=== PATIENT | male | born 1960 | race Caucasian/White ===

== ENCOUNTER 2017-04-29 10:52 | Emergency (ER) | payer OTHER ==
[~2017-04-29] VITALS: Ht 185.4 cm; Wt 80.3 kg
[~2017-04-29 10:52] MED LIST: CELEBREX 200 M200 M1 PO; CLARITIN10 MG PO; DOXYCYCLINE 10100 M1 PO; DULERA 100 MCG/13 GM; IBUPROFEN 600600 M1 PO; NORCO 5-325 TA1 EACH PO; OMEPRAZOLE 20 M20 MG PO; PREDNISONE 10 M10 MG PO; PROVENTIL HFA6.7 G1 INH; SPIRIVA INH; TYLENOL325 MG PO; VENTOLIN HFA 1818 GM; ZOLOFT 50 MG TA50 M1 PO; ZPAK PO
[2017-04-29] MEDS ORDERED: ADVAIR 250-501 EACH INH (11:04)
[2017-04-29] MEDS ORDERED: VALIUM5 MG PO (13:17)
[2017-04-29] MEDS ORDERED: NORCO 5-325 TA1 EACH PO (13:17)
== END 2017-04-29 16:15 | disposition home or self-care (01) ==
LOC: ER 10:52
DX: M54.5 Low back pain (principal); M19.90 Unspecified osteoarthritis, unspecified site; J44.9 Chronic obstructive pulmonary disease, unspecified; F17.210 Nicotine dependence, cigarettes, uncomplicated; Z98.890 Other specified postprocedural states

== ENCOUNTER 2019-08-16 09:41 | Emergency (ER) | payer OTHER ==
[~2019-08-16] VITALS: Ht 185.4 cm; Wt 81.7 kg
[~2019-08-16 09:41] MED LIST changes: +ADVAIR 250-501 EACH INH; +VALIUM5 MG PO
[2019-08-16 10:56] VITALS: BP 107/82
[2019-08-16] MEDS ORDERED: NORCO 5-325 TA1 EAC1 PO (10:59)
== END 2019-08-16 11:03 | disposition home or self-care (01) ==
LOC: ER 09:41
DX: M54.2 Cervicalgia (principal); M19.90 Unspecified osteoarthritis, unspecified site; J44.9 Chronic obstructive pulmonary disease, unspecified; F17.210 Nicotine dependence, cigarettes, uncomplicated

== ENCOUNTER 2019-09-29 11:37 | Inpatient (IN) | payer OTHER ==
[~2019-09-29] VITALS: Ht 185.4 cm; Wt 74.9 kg
[~2019-09-29 11:37] MED LIST changes: +NORCO 5-325 TA1 EAC1 PO
[2019-09-29 11:38] VITALS: BP 101/67
[2019-09-29 12:02] LABS: ABSOLUTE NEUTROPHILS 4.9 thou/uL (1.4-8.2); BASOPHILS 0.5 % (0.0-2.0); EOSINOPHILS 0.5 % (0.0-3.0); HEMATOCRIT 49.2 % (42.0-52.0); HEMOGLOBIN 16.3 gm/dL (14.0-18.0); LYMPHOCYTES 17.6 % (24.0-44.0); MCH 31.6 pg (26.0-34.0); MCHC 33.2 g/dL (28.0-37.0); MCV 95.3 fL (80.0-100.0); PLATELET COUNT 189 thou/uL (150-400); POLYS 70.4 % (36.0-66.0); RBC 5.16 mil/uL (4.50-6.00); RDW 13.7 % (10.5-14.5); WBC 6.9 thou/uL (4.0-11.0)
[2019-09-29] MEDS ORDERED: CHANTIX1 EACH PO (12:12)
[2019-09-29] MEDS ORDERED: AMBIEN 10 MG TA10 MG PO (12:12)
[2019-09-29] MEDS ORDERED: ADVAIR 250-501 EACH INH (12:13)
[2019-09-29 12:15] LABS: ANION GAP 10 mmol/L (7-16); BUN 19 mg/dL (7-18); CHLORIDE 101 mmol/L (98-107); CO2 24 mmol/L (21-32); CREATININE 0.9 mg/dL (0.7-1.3); GLUCOSE 144 mg/dL (74-106); POTASSIUM 4.1 mmol/L (3.5-5.1); SODIUM 135 mmol/L (136-145)
[2019-09-29 12:21] LABS: ALBUMIN 3.7 g/dL (3.4-5.0); SGOT 14 U/L (15-37); SGPT 17 U/L (30-65); TOTAL BILIRUBIN 0.5 mg/dL (<0.1-1.0); TOTAL PROTEIN 7.3 g/dL (6.4-8.2); TROPONIN-I <0.06 ng/mL (<0.06)
[2019-09-29 13:31] VITALS: BP 110/65
[2019-09-29 14:31] VITALS: BP 121/70
[2019-09-29 15:59] VITALS: BP 135/88
--- NOTE | 2019-09-29 17:21 | NUR ---
NEW ADMISSION FOR CHEST PAIN AND SOA, ALERT X4, PAIN RATES 2/10 ON ASSESMENT WITH PAIN INCREASE WHEN COUGHING. UP AB ILA IN ROOM. LAST BM 09/28/19, MEDICATIONS RECONCILED. 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 ADMISSION ASSESMENT AND HISTORY COMPLETED. ORDERS ACKNOWELDGED. CALL LIGHT IN REACH.
[2019-09-29 19:45] VITALS: BP 124/80
[2019-09-30 00:35] VITALS: BP 148/67
--- NOTE | 2019-09-30 03:59 | NUR ---
PT CARE ASSUMED AT 1900. PT ALERT AND ORIENTED. DENIES N/V/D. REPORTS CHEST SORENESS DUE TO PERSISTENT COUGHING. VITAL SIGNS STABLE. MINIMAL SOB REPORTED WITH EXCERTION AND GENERAL WEAKNESS. MED ADMINISTRATION AND ASSESSMENTS DOCUMENTED.PT CURRENTLY STABLE. NO OTHER CONCERNS REPORTED. WILL CONTINUE WITH CURRENT PLAN OF CARE.
[2019-09-30 04:45] VITALS: BP 121/85
[2019-09-30 05:42] LABS: ABSOLUTE NEUTROPHILS 4.7 thou/uL (1.4-8.2); BASOPHILS 0.2 % (0.0-2.0); HEMATOCRIT 49.3 % (42.0-52.0); HEMOGLOBIN 16.8 gm/dL (14.0-18.0); LYMPHOCYTES 9.4 % (24.0-44.0); MCH 32.6 pg (26.0-34.0); MCV 95.7 fL (80.0-100.0); MONOCYTES 2.5 % (1.0-8.0); PLATELET COUNT 185 thou/uL (150-400); POLYS 87.9 % (36.0-66.0); RBC 5.15 mil/uL (4.50-6.00); RDW 13.6 % (10.5-14.5); WBC 5.4 thou/uL (4.0-11.0)
[2019-09-30 05:58] LABS: ANION GAP 12 mmol/L (7-16); BUN 16 mg/dL (7-18); CALCIUM 8.9 mg/dL (8.5-10.1); CHLORIDE 101 mmol/L (98-107); CHOLESTEROL 149 mg/dL (<200); CO2 23 mmol/L (21-32); CREATININE 0.8 mg/dL (0.7-1.3); GLUCOSE 119 mg/dL (74-106); HDL CHOLESTEROL 47 mg/dL (>40); LDL CHOLESTEROL 93 mg/dL (<100); MAGNESIUM 1.5 mg/dL (1.8-2.4); PHOSPHORUS 2.5 mg/dL (2.5-4.9); POTASSIUM 4.5 mmol/L (3.5-5.1); SODIUM 136 mmol/L (136-145); TC:HDL 3.2 Ratio (Not establshd); TRIGLYCERIDE 48 mg/dL (<150); VLDL 10 mg/dL (<40)
[2019-09-30 05:59] LABS: SERUM ASSESSMENT Clear
[2019-09-30 07:30] VITALS: BP 112/68
[2019-09-30 11:24] VITALS: BP 130/87
[2019-09-30 15:37] VITALS: BP 105/64
--- NOTE | 2019-09-30 17:13 | NUR ---
PT CARE ASSUMED APPROX 0700. ASSESSMENTS CHARTED. DENIES PAIN AND SOA. VSS. UP WITH STEADY GAIT. PT TOLERATING POC. PT AND RECEIVED CLINICAL/POC UPDATES THIS SHIFT AND BOTH DENY QUESTIONS OR CONCERNS REGARDING POC. NO DISTRESS NOTED.
[2019-09-30 19:50] VITALS: BP 116/78
--- NOTE | 2019-10-01 04:15 | NUR ---
Assumed care 1900. pt alert in his chair at this time. persistent cough still noted. lozenges given. Pt also denies chest pain, but minimal soreness from coughing. No, SOA, or palpitation reported despite the fact of pt having a 5 beat run of VTACH(strip printed in pt chart). Pt scheduled to have an echo this morning. no further c/o. pt currently stable.
[2019-10-01 04:24] VITALS: BP 117/78
[2019-10-01 08:00] VITALS: BP 119/87
[2019-10-01 12:17] VITALS: BP 114/68
--- NOTE | 2019-10-01 13:59 | NUR ---
Nutrition: pt admitted with CP, SOA. Assessed due to high risk screen for poor intake, weight loss (2-13#) per nsg admission assessment. Current weight of 165#, BMI WNL. [facility] Noted Troponin/EKG normal. Plan EKG today. Attempted to visit pt x 2 however noted family visibly upset and speaking with nsg senior portfolio manager, then pt leaving for test. Recent hx of Chantix use x 10 days in attempts for smoking cessation. PO intake documented as 50-100% of meals so far. Will follow for further hx 10/02 if pt remains admitted.
--- NOTE | 2019-10-01 15:48 | 2DMMODE ---
[facility] [address] [place] [address] 2 D/M-MODE ECHOCARDIOGRAM Name: CHRISTIE BISWAS Room #: 205-P [facility] IN ..#: [id number] Admission: 09/29/19 Attend Phys: Kala Chanel, Discharge: Date of : 56 Report #: [id number] THIS REPORT FOR: //name// APPROVED REPORT Study performed: 10/01/2019 13:44:48 EXAM: Comprehensive 2D, Doppler, and color-flow Echocardiogram Patient Location: Bedside Room #: 205 Status: routine BSA: 1.96 HR: 86 bpm BP: 119/87 mmHg Rhythm: Arrythmia Other Information Study Quality: Good Indications COPD Dyspnea Chest Pain 2D Dimensions RVDd: 33.17 mm IVSd: 7.68 (7-11mm) LVOT Diam: 24.36 (18-24mm) LVDd: 66.08 mm PWd: 7.47 (7-11mm) LVDs: 54.90 (25-40mm) Aortic Root: 31.89 mm IVC: 25.00 mm Volumes Left Atrial Volume (Systole) Single Plane 4CH: 62.75 mL Single Plane 2CH: 60.48 mL LA ESV Index: 34.00 mL/m2 Aortic Valve AoV Peak Blanco.: 1.22 m/s AO Peak Gr.: 5.96 mmHg LVOT Max P.37 mmHg LVOT Max V: 1.05 m/s FABIOLA Vmax: 3.99 cm2 Mitral Valve E/A Ratio: 0.7 [facility] [address] [place] [address] 2 D/M-MODE ECHOCARDIOGRAM Name: CHRISTIE BISWAS Room #: 205-P [facility] IN .R.#: [id number] Admission: 09/29/19 Attend Phys: Kala Chanel, Discharge: Date of : 56 Report #: [id number] MV Decel. Time: 251.99 ms MV E Max Blanco.: 0.63 m/s MV A Blanco.: 0.92 m/s MV PHT: 73.08 ms IVRT: 124.57 ms Pulmonary Valve PV Peak Blanco.: 0.86 m/s PV Peak Gr.: 2.99 mmHg Pulmonary Vein P Vein S: 0.51 m/s P Vein A: 0.27 m/s P Vein D: 0.46 m/s P Vein A Dur.: 87.7 msec P Vein S/D Ratio: 1.11 Left Ventricle Left ventricle is dilated. There is hypokinesis in the inferior wall. There is normal left ventricular wall thickness. Left ventricular systolic function is mild to moderately decreased. LVEF is 40-45%. Grade I - abnormal relaxation pattern. Right Ventricle The right ventricle is normal size. The right ventricular systolic function is normal. Atria Left atrium is at the upper limits of normal. Right atrium is at the upper limits of normal. Aortic Valve The aortic valve is normal in structure. No aortic regurgitation is present. There is no aortic valvular stenosis. Mitral Valve The mitral valve is normal in structure. Mild mitral regurgitation. No evidence of mitral valve stenosis. Tricuspid Valve The tricuspid valve is normal in structure. There is no tricuspid valve regurgitation noted. Pulmonic Valve The pulmonary valve is normal in structure. There is no pulmonic valvular regurgitation. Great Vessels The aortic root is normal in size. IVC is dilated and collapses [facility] [address] [place] [address] 2 D/M-MODE ECHOCARDIOGRAM Name: CHRISTIE BISWAS Room #: 205-P ADM IN M.R.#: [id number] Admission: 09/29/19 Attend Phys: Kala Chanel, Discharge: Date of : 56 Report #: [id number] <50% with inspiration. Pericardium There is no pericardial effusion. <Conclusion> Left ventricle is dilated. LVEF is 40-45%. There is hypokinesis in the inferior wall. The aortic valve is normal in structure. The mitral valve is normal in structure. Mild mitral regurgitation. The tricuspid valve is normal in structure. The pulmonary valve is normal in structure. There is no pericardial effusion. <ELECTRONICALLY SIGNED> By: Zeke Burt MD 10/01/19 1547 1547 1547 Zeke Burt MD /INF
--- NOTE | 2019-10-01 16:10 | EKG ---
[address] [address] ELECTROCARDIOGRAM REPORT Name: CHRISTIE BISWAS Room #: 205-P ADM IN M.R.#: [id number] Admission: 09/29/19 Attend Phys: aKla Chanel MD Discharge: Date of : 56 Report #: [id number] THIS REPORT FOR: //name// [facility] Test Date: 2019-10-01 Test Time: 08:41:00 Pat Name: CHRISTIE BISWAS Department: Room: 205 P Gender: M Ribbon Inker: Tatum GARCIA : 1960 Requested By: Ronnie Gray Order Number: [id number] MD: Richard Escalante Measurements Intervals [place] Rate: 79 P: 80 AL: 139 QRS: 98 QRSD: 118 T: 14 QT: 398 QTc: 457 Interpretive Statements Sinus arrhythmia Multiple ventricular premature complexes Right atrial enlargement Nonspecific intraventricular conduction delay Compared to ECG 06/28/2015 08:17:24 Electronically Signed On 10-01-2019 16:09:48 EDUCATIONAL RESOURCE COORDINATOR by Richard Escalante [email or web address] <ELECTRONICALLY SIGNED> By: Richard Escalante MD 10/01/19 1609 0 0 Richard Escalante MD /SHEILA
[2019-10-01 16:40] VITALS: BP 104/60
[2019-10-01 17:23] LABS: CALCIUM 9.1 mg/dL (8.5-10.1); CREATININE 0.9 mg/dL (0.7-1.3); POTASSIUM 4.4 mmol/L (3.5-5.1)
--- NOTE | 2019-10-01 18:26 | NUR ---
ASSUMED CARE AT SHIFT CHANGE, ALERT AND ORIENTED X4. VSS, C/O PAIN / AND PATIENT DENEIS ANY SOB. NPO MN FOR HEART CATH IN THE AM. WILL CONTINUE WITH POC.
[2019-10-01 21:01] VITALS: BP 101/65
[2019-10-02] VITALS (11 sets, daily range): BP systolic 113–150; BP diastolic 59–86
[2019-10-02 03:32] LABS: PROTIME 9.9 Seconds (9.3-11.4)
[2019-10-02 03:39] LABS: CALCIUM 9.5 mg/dL (8.5-10.1); CREATININE 0.8 mg/dL (0.7-1.3); MAGNESIUM 1.7 mg/dL (1.8-2.4); PHOSPHORUS 3.6 mg/dL (2.5-4.9); POTASSIUM 4.7 mmol/L (3.5-5.1)
--- NOTE | 2019-10-02 04:39 | NUR ---
PT RESTING QUIETLY IN ROOM , NO C/O PAIN, NPO SINCE MNOC FOR C. CATH IN AM, VSS, WILL CON'T TO MONITOR PER PPOC.
--- NOTE | 2019-10-02 14:53 | EKG ---
[place] [address] [facility] [facility] [place] [address] ELECTROCARDIOGRAM REPORT Name: CHRISTIE BISWAS Room #: 205-P ADM IN M.R.#: [id number] Admission: 09/29/19 Attend Phys: Kala Chanel MD Discharge: Date of : 56 Report #: [id number] THIS REPORT FOR: //name// [facility] ED Test Date: 2019-09-29 Test Time: 11:39:56 Pat Name: CHRISTIE BISWAS Department: Room: 205 Gender: M Residential Installer: RADHA : 1960 Requested By: Grazyna Hurst Order Number: [id number] MD: Richard Escalante Measurements Intervals [place] Rate: 83 P: 86 [place]: 131 QRS: 101 QRSD: 111 T: -18 QT: 347 QTc: 408 Interpretive Statements Sinus rhythm Multiform ventricular premature complexes Biatrial enlargement Right axis deviation Compared to ECG 06/28/2015 08:17:24 Electronically Signed On 10-02-2019 14:53:21 SPOOLER OPERATOR AUTOMATIC by Richard Escalante [email or web address] <ELECTRONICALLY SIGNED> By: Richard Escalante MD 10/02/19 1453 1139 1139 Richard Escalante MD /SHEILA
--- NOTE | 2019-10-02 15:05 | EKG ---
[address] [address] ELECTROCARDIOGRAM REPORT Name: CHRISTIE BISWAS Room #: 205-P ADM IN M.R.#: [id number] Admission: 09/29/19 Attend Phys: Kala Chanel MD Discharge: Date of : 56 Report #: [id number] THIS REPORT FOR: //name// [facility] Test Date: 2019-10-02 Test Time: 10:32:01 Pat Name: CHRISTIE BISWAS Department: Room: 205 P Gender: M Professor Of Poultry Science: SHANNA : 1960 Requested By: Ronnie Gray Order Number: [id number] MD: Richard Escalante Measurements Intervals [place] Rate: 77 P: 67 [place]: 135 QRS: 95 QRSD: 115 T: 55 QT: 420 QTc: 476 Interpretive Statements Sinus rhythm Paired ventricular premature complexes Nonspecific intraventricular conduction delay Compared to ECG 10/01/2019 08:41:00 Sinus arrhythmia no longer present Atrial abnormality no longer present Electronically Signed On 10-02-2019 15:05:21 LINOTYPER by Richard Escalante [email or web address] <ELECTRONICALLY SIGNED> By: Richard Escalante MD 10/02/19 1505 103 103 Richard Escalante MD /EPI
--- NOTE | 2019-10-02 16:52 | NUR ---
PT CARE ASSUMED APPROX 0700. ASSESSMENTS CHARTED. PT DENIES PAIN AND SOA. VSS. COMPLETED CARDIAC CATH WITHOUT ISSUES THIS SHIFT. RIGHT GROIN POST CATH SITE C/D/I. ALL POST CATH VSS. AT BEDSIDE SINCE THIS AM AND RECEIVED PROCEDURAL UPDATE FROM DR HEAD POST CATH. PT AND BOTH DENY QUESTIONS OR CONCERNS REGARDING POC. PT TOLERATING POC. NO DISTRESS NOTED.
--- NOTE | 2019-10-02 20:10 | CATHLAB ---
[facility] [address] [place] [address] INVASIVE PROCEDURE REPORT Name: CHRISTIE BISWAS Room #: 205-P [facility] IN ..#: [id number] Admission: 09/29/19 Attend Phys: Kala Chanel, Discharge: Date of : 56 Report #: [id number] THIS REPORT FOR: //name// APPROVED REPORT Study performed: 10/02/2019 07:26:21 Patient Details Patient Status: Out-Patient Room #: The patient is a 59 year-old male Event Personnel Ronnie Gray Arts Administrator Or Manager, Cindi Hays RN RN, Donya Busch RTR Brenda Martinez David Monitor Procedures Performed Left Heart Cath w/or w/o Coronaries 9841956 [facility] Aortogram Abdominal Peripheral Angio [address] w/wo Plasty Single RCA 864335 Indication Chest pain Procedure Narrative The Right Groin^ was infiltrated with 1% Lidocaine subcutaneous anesthesia. A PINNACLE 6FR Sheath #[id number] sheath was inserted into the RFA^. Coronary angiography was performed using coronary diagnostic catheters. The right coronary system was accessed and visualized with a JR4 catheter. The left coronary system was accessed and visualized with a JL4 catheter. The left ventricle was accessed and visualized with a PIGTAIL catheter. Left ventriculogram was performed in 30 degree projection. An aortogram of the ascending aortaabdominal aorta was performed. Closure device was deployed with a 6 Fr ACT #[id number] 6/7F #[id number]. The patient tolerated the procedure well and there were no complications associated with the procedure. There was no hematoma. Intraoperative Conscious Sedation Sedation start time: 8.07 Case end Time: 8.57 Fentanyl 50 mcg Versed 1 mg Fluoro Time: 8.13 minutes Dose: DAP 8907.00 cGycm2 1116 mGy Contrast Type and Amount: Omnipaque 210 ml [facility] [place] [address] INVASIVE PROCEDURE REPORT Name: CHRISTIE BISWAS Room #: 205-P [facility] IN ..#: [id number] Admission: 09/29/19 Attend Phys: Kala Chanel, Discharge: Date of : 56 Report #: [id number] Hemodynamics The aortic pressure is 116/38 mmHg with a mean of 66 mmHg. The left ventricular pressure is 110/11 mmHg with a mean of mmHg. The left ventricular end diastolic pressure is 21 mmHg. PCI Technique Lesion Percutaneous coronary intervention was performed on the mid right coronary artery. A VISTA 6FR JR 4 #[id number] Guide Catheter was used to engage the ostium. A Luge Wire .014 x 182CM #[id number] Interventional Guidewire was used to cross the lesion. BALLOON DILATION A Balloon catheter Sprinter OTW 2.25 x 12 #[id number] was inserted and inflated up to 8.00atm for 17seconds. Additional Inflation: 10.00atm for 11seconds. Additional Inflation: 10.00atm for 14seconds. 09/24-09/17- STENT DEPLOYMENT A drug-eluting stent RESOLUTE HERO OTW 2.5 X 18 #[id number] was inserted and inflated up to 18.00atm for 36seconds. Conclusion #1 successful PTCA stent of a chronically totally occluded dominant RCA placement of a 2.75 x 18 resolute drug-eluting stent postdilated 2.9 mm GERMÁN grade 3 flow GERMÁN grade 3 inferior wall blush #2 left main mildly disease giving rise to LAD and circumflex #3 LAD extends around the apex mild diffuse distal disease there is dpin-tw-aubuq collateral filling of an occluded PDA prior to coronary intervention #4 circumflex OM nondominant moderate size 3040% proximal disease otherwise widely patent marginal system #5 normal left ventricular size with inferior basilar hypokinesis EF 50-55% #6 abdominal aortogram revealing mild distal aortic ectasia no aneurysm or significant stenosis. Bilateral renal arteries appear widely patent. Recognitions and plan: Continue aggressive risk factor modification. Dual antiplatelet therapy at least one year duration. Successful caodaism of normal flow through the dominant right coronary artery appeared to be more of a chronic total occlusion. Vessel was well collateralized a limited inferior wall damage. [facility] [address] [place] [address] INVASIVE PROCEDURE REPORT Name: CHRISTIE BISWAS Room #: 205-P [facility] IN M.R.#: [id number] Admission: 09/29/19 Attend Phys: Kala Chanel, Discharge: Date of : 56 Report #: [id number] Ejection fraction near normal. Transfer to [facility] in stable condition continue stent protocol. <ELECTRONICALLY SIGNED> By: Ronnie Gray MD, FACC 10/02/192009 09 09 Ronnie Gray MD, FACC /INF
[2019-10-02 23:10] LABS: GLYCOHEMOGLOBIN (HGB A1C) 5.6 % (4.8-5.6)
[2019-10-03 00:39] VITALS: BP 116/79
[2019-10-03 03:34] VITALS: BP 116/71
--- NOTE | 2019-10-03 03:38 | NUR ---
pt resting quietly in room, right groin remains cdi, no c/o pain, vss, pt hopes to be dc'd soon, will cont to monitor per ppoc.
[2019-10-03 04:34] LABS: HEMATOCRIT 46.4 % (42.0-52.0); HEMOGLOBIN 15.2 gm/dL (14.0-18.0); MCH 31.6 pg (26.0-34.0); MCHC 32.8 g/dL (28.0-37.0); MCV 96.3 fL (80.0-100.0); RBC 4.82 mil/uL (4.50-6.00); RDW 13.9 % (10.5-14.5); WBC 10.5 thou/uL (4.0-11.0)
[2019-10-03 05:11] VITALS: BP 111/63
[2019-10-03 05:18] LABS: ALBUMIN 3.4 g/dL (3.4-5.0); ANION GAP 9 mmol/L (7-16); BUN 29 mg/dL (7-18); CALCIUM 8.5 mg/dL (8.5-10.1); CHLORIDE 104 mmol/L (98-107); CO2 25 mmol/L (21-32); CREATININE 0.8 mg/dL (0.7-1.3); GLUCOSE 79 mg/dL (74-106); POTASSIUM 4.1 mmol/L (3.5-5.1); SGOT 28 U/L (15-37); SGPT 27 U/L (30-65); SODIUM 138 mmol/L (136-145); TOTAL BILIRUBIN 0.3 mg/dL (<0.1-1.0); TOTAL PROTEIN 6.8 g/dL (6.4-8.2); TROPONIN-I <0.06 ng/mL (<0.06)
[2019-10-03 07:20] VITALS: BP 111/63
[2019-10-03 11:48] VITALS: BP 131/72
[2019-10-03] MEDS ORDERED: SPIRIVA INH (13:27)
[2019-10-03] MEDS ORDERED: EFFIENT10 MG PO (13:28)
[2019-10-03] MEDS ORDERED: LIPITOR40 MG PO (13:29)
[2019-10-03] MEDS ORDERED: ASPIRIN325 PO (13:29)
[2019-10-03] MEDS ORDERED: PREDNISONE 10 M10 MG PO (13:33)
[2019-10-03] MEDS ORDERED: MUCINEX1200 MG PO (13:35)
--- NOTE | 2019-10-03 14:01 | NUR ---
ASSUMED CARE 0700. ORIENTED X4, DENIES PAIN, RIGHT GROIN SITE C/D/I. OKAY TO DC PER CARDIALOGY. SINUS ARYTHMIA ON TELE. REVIEWED POST CATH EDUCATIONS AND NEW PERSCRIPTIONS. IV REMOVED AND TELE. DC WITH SELF CARE.
[2019-10-03 14:05] VITALS: BP 131/72
== END 2019-10-03 14:30 | disposition home or self-care (01) | DRG 246 ==
LOC: ER 11:37 → EROBS 13:23 → 2N 13:23
PROVIDERS: Internal Medicine Cardiovascular Disease; Nurse Practitioner Adult Health; Physician Assistant; ADMIT Internal Medicine
PROC: B4101ZZ Fluoroscopy of Abdominal Aorta using Low Osmolar Contrast (ICD-10-PCS; principal; 2019-10-02)
PROC: 4A023N7 Measurement of Cardiac Sampling and Pressure, Left Heart, Percutaneous Approach (ICD-10-PCS; principal; 2019-10-02)
PROC: 027034Z Dilation of Coronary Artery, One Artery with Drug-eluting Intraluminal Device, Percutaneous Approach (ICD-10-PCS; principal; 2019-10-02)
PROC: B2151ZZ Fluoroscopy of Left Heart using Low Osmolar Contrast (ICD-10-PCS; principal; 2019-10-02)
PROC: B2111ZZ Fluoroscopy of Multiple Coronary Arteries using Low Osmolar Contrast (ICD-10-PCS; principal; 2019-10-02)
DX: I25.10 Atherosclerotic heart disease of native coronary artery without angina pectoris (principal); I50.21 Acute systolic (congestive) heart failure; J40 Bronchitis, not specified as acute or chronic; M19.90 Unspecified osteoarthritis, unspecified site; J44.9 Chronic obstructive pulmonary disease, unspecified; F32.9 Major depressive disorder, single episode, unspecified; F41.9 Anxiety disorder, unspecified; Z82.49 Family history of ischemic heart disease and other diseases of the circulatory system; Z80.3 Family history of malignant neoplasm of breast; F17.210 Nicotine dependence, cigarettes, uncomplicated; K21.9 Gastro-esophageal reflux disease without esophagitis; Z79.82 Long term (current) use of aspirin; Z79.899 Other long term (current) drug therapy; Z71.6 Tobacco abuse counseling; Z72.89 Other problems related to lifestyle
CPT/HCPCS: 10081

== ENCOUNTER 2019-10-08 07:24 | Emergency (ER) | payer OTHER ==
[~2019-10-08] VITALS: Ht 185.4 cm; Wt 78.9 kg
[~2019-10-08 07:24] MED LIST changes: +AMBIEN 10 MG TA10 MG PO; +ASPIRIN325 PO; +CHANTIX1 EACH PO; +EFFIENT10 MG PO; +LIPITOR40 MG PO; +MUCINEX1200 MG PO
[2019-10-08 07:48] LABS: ABSOLUTE NEUTROPHILS 12.7 thou/uL (1.4-8.2); BASOPHILS 0.4 % (0.0-2.0); EOSINOPHILS 0.3 % (0.0-3.0); HEMOGLOBIN 15.3 gm/dL (14.0-18.0); LYMPHOCYTES 11.3 % (24.0-44.0); MCH 31.5 pg (26.0-34.0); MCHC 33.1 g/dL (28.0-37.0); MCV 95.1 fL (80.0-100.0); MONOCYTES 9.1 % (1.0-8.0); PLATELET COUNT 273 thou/uL (150-400); POLYS 78.9 % (36.0-66.0); RBC 4.84 mil/uL (4.50-6.00); RDW 13.5 % (10.5-14.5); WBC 16.1 thou/uL (4.0-11.0)
[2019-10-08] MEDS ORDERED: MAGNESIUM250 M1 PO ×2 (07:50)
[2019-10-08 08:00] LABS: PROTIME 9.4 Seconds (9.3-11.4)
[2019-10-08 08:04] LABS: ANION GAP 9 mmol/L (7-16); BUN 27 mg/dL (7-18); CALCIUM 9.9 mg/dL (8.5-10.1); CHLORIDE 102 mmol/L (98-107); CO2 27 mmol/L (21-32); CREATININE 0.8 mg/dL (0.7-1.3); GLUCOSE 84 mg/dL (74-106); POTASSIUM 4.8 mmol/L (3.5-5.1); SODIUM 138 mmol/L (136-145)
[2019-10-08 08:15] LABS: ALBUMIN 3.5 g/dL (3.4-5.0); MAGNESIUM 1.9 mg/dL (1.8-2.4); SGOT 33 U/L (15-37); SGPT 38 U/L (30-65); TOTAL BILIRUBIN 0.5 mg/dL (<0.1-1.0); TOTAL PROTEIN 7.3 g/dL (6.4-8.2); TROPONIN-I <0.06 ng/mL (<0.06)
--- NOTE | 2019-10-08 08:38 | EKG ---
[place] [address] [place] [address] ELECTROCARDIOGRAM REPORT Name: CHRISTIE BISWAS [id number] Admission: 10/08/19 Attend Phys: Discharge: Date of : 56 Report #: [id number] THIS REPORT FOR: //name// [facility] ED Test Date: 2019-10-08 Test Time: 07:33:50 Pat Name: CHRISTIE BISWAS Department: Room: Gender: International Marketing Specialist[facility] : 1960 Requested By: Barney Chavez Order Number: [id number] MD: Zenon Bynum Measurements Intervals [place] Rate: 62 P: 81 AL: 138 QRS: 95 QRSD: 112 T: 49 QT: 402 QTc: 409 Interpretive Statements Sinus rhythm Borderline intraventricular conduction delay Compared to ECG 10/02/2019 10:32:01 Ventricular premature complex(es) no longer present Electronically Signed On 10-08-2019 8:38:00 MOTOR VEHICLE OR CARAVAN SALESPERSON by Zenon Bynum [email or web address] <ELECTRONICALLY SIGNED> By: Zenon Bynum MD, [facility] 10/08/19 0838 0733 2 Zenon Bynum MD, FACC /EPI
[2019-10-08 09:32] LABS: URINE BILIRUBIN NEGATIVE (Negative); URINE BLOOD NEGATIVE (Negative); URINE CLARITY CLEAR; URINE COLOR YELLOW; URINE GLUCOSE-RANDOM* NEGATIVE (Negative); URINE KETONES NEGATIVE (Negative); URINE LEUKOCYTES-REFLEX NEGATIVE (Negative); URINE NITRITE-REFLEX NEGATIVE (Negative); URINE PROTEIN (DIPSTICK) NEGATIVE (Negative); URINE SPECIFIC GRAVITY >= 1.030 (1.005-1.035); URINE UROBILINOGEN 0.2 E.U./dl (0.2-1.0)
[2019-10-08 09:47] VITALS: BP 132/71
== END 2019-10-08 09:47 | disposition home or self-care (01) ==
LOC: ER 07:24
PROVIDERS: Emergency Medicine
DX: E86.0 Dehydration (principal); R42 Dizziness and giddiness; R11.0 Nausea; J44.9 Chronic obstructive pulmonary disease, unspecified; K21.9 Gastro-esophageal reflux disease without esophagitis; F41.9 Anxiety disorder, unspecified; F32.9 Major depressive disorder, single episode, unspecified; F17.210 Nicotine dependence, cigarettes, uncomplicated; Z95.5 Presence of coronary angioplasty implant and graft

== ENCOUNTER → 2019-10-14 | Outpatient (CLI) | payer OTHER ==
[~2019-10-14] MED LIST changes: +ANORO ELLIPTA1 EACH INH; +ASA81BEC PO; +MAGNESIUM250 M1 PO; +TOPROL XL25 MG PO; +TRAMADOL 50 MG50 MG PO
== END ==
LOC: SJCVCIMAG 13:39
DX: I25.10 Atherosclerotic heart disease of native coronary artery without angina pectoris (principal); R09.89 Other specified symptoms and signs involving the circulatory and respiratory systems; I65.23 Occlusion and stenosis of bilateral carotid arteries; I10 Essential (primary) hypertension; E78.5 Hyperlipidemia, unspecified; R42 Dizziness and giddiness; R25.1 Tremor, unspecified; J44.9 Chronic obstructive pulmonary disease, unspecified; Z79.82 Long term (current) use of aspirin; Z79.899 Other long term (current) drug therapy; Z87.891 Personal history of nicotine dependence

== ENCOUNTER 2019-12-04 07:29 | Emergency (ER) | payer OTHER ==
[~2019-12-04] VITALS: Ht 185.4 cm; Wt 81.7 kg
[~2019-12-04 07:29] MED LIST changes: -ANORO ELLIPTA1 EACH INH; -ASA81BEC PO; -TOPROL XL25 MG PO; -TRAMADOL 50 MG50 MG PO
[2019-12-04] MEDS ORDERED: ASA81BEC PO (07:39)
[2019-12-04] MEDS ORDERED: TOPROL XL25 MG PO (07:41)
[2019-12-04] MEDS ORDERED: TRAMADOL 50 MG50 MG PO (07:41)
[2019-12-04] MEDS ORDERED: ANORO ELLIPTA1 EACH INH (07:42)
[2019-12-04 08:19] LABS: ABSOLUTE NEUTROPHILS 5.3 thou/uL (1.4-8.2); BASOPHILS 0.5 % (0.0-2.0); EOSINOPHILS 2.5 % (0.0-3.0); HEMATOCRIT 43.3 % (42.0-52.0); HEMOGLOBIN 14.3 gm/dL (14.0-18.0); LYMPHOCYTES 25.2 % (24.0-44.0); MCHC 32.9 g/dL (28.0-37.0); MCV 94.1 fL (80.0-100.0); MONOCYTES 9.6 % (1.0-8.0); PLATELET COUNT 217 thou/uL (150-400); POLYS 62.2 % (36.0-66.0); RDW 13.7 % (10.5-14.5); WBC 8.5 thou/uL (4.0-11.0)
[2019-12-04 08:26] LABS: APTT 28.9 Seconds (24.5-32.8)
[2019-12-04 08:27] LABS: ANION GAP 9 mmol/L (7-16); BUN 18 mg/dL (7-18); CALCIUM 9.7 mg/dL (8.5-10.1); CHLORIDE 100 mmol/L (98-107); CO2 28 mmol/L (21-32); CREATININE 0.9 mg/dL (0.7-1.3); GLUCOSE 107 mg/dL (74-106); POTASSIUM 4.5 mmol/L (3.5-5.1); SODIUM 137 mmol/L (136-145)
[2019-12-04 08:37] LABS: ALBUMIN 3.8 g/dL (3.4-5.0); MAGNESIUM 1.6 mg/dL (1.8-2.4); SGOT 17 U/L (15-37); SGPT 14 U/L (30-65); TOTAL BILIRUBIN 0.4 mg/dL (<0.1-1.0); TOTAL PROTEIN 7.1 g/dL (6.4-8.2); TROPONIN-I <0.06 ng/mL (<0.06)
[2019-12-04 09:53] LABS: URINE BILIRUBIN NEGATIVE (Negative); URINE BLOOD NEGATIVE (Negative); URINE CLARITY CLEAR; URINE COLOR YELLOW; URINE GLUCOSE-RANDOM* NEGATIVE (Negative); URINE KETONES NEGATIVE (Negative); URINE LEUKOCYTES-REFLEX NEGATIVE (Negative); URINE NITRITE-REFLEX NEGATIVE (Negative); URINE PROTEIN (DIPSTICK) NEGATIVE (Negative); URINE UROBILINOGEN 0.2 E.U./dl (0.2-1.0)
[2019-12-04 10:05] LABS: AMP/METHAMP Negative (Negative); BARBITURATES Negative (Negative); BENZODIAZEPINES Negative (Negative); COCAINE Negative (Negative); METHADONE Negative (Negative); OPIATES Negative (Negative); PCP Negative (Negative)
[2019-12-04 10:56] VITALS: BP 114/76
--- NOTE | 2019-12-04 16:32 | EKG ---
[facility] [place] [address] [place] [address] ELECTROCARDIOGRAM REPORT Name: BISWASCHRISTIE Lin Room #: DEP [facility]#: [id number] Admission: 12/04/19 Attend Phys: Discharge: 12/04/19 Date of : 56 Report #: [id number] THIS REPORT FOR: cc: Clifford Hines MD, David A. MD Park, Jin S. MD ~ THIS REPORT FOR: //name// [facility] ED Test Date: 2019-12-04 Test Time: 07:40:56 Pat Name: CHRISTIE BISWAS Department: Room: Gender: Sql Report Writer: CECILIA : 1960 Requested By: Barney Chavez Order Number: [id number] MD: Mark Blancas Measurements Intervals [place] Rate: 59 P: 77 [place]: 137 QRS: 92 QRSD: 114 T: 65 QT: 407 QTc: 404 Interpretive Statements Sinus rhythm Borderline intraventricular conduction delay Compared to ECG 10/08/2019 07:33:50 No significant changes Electronically Signed On 12-04-2019 16:31:14 MATTRESS STUFFER by Mark Blancas [email or web address] <ELECTRONICALLY SIGNED> By: Mark Blancas MD 12/04/19 1631 0740 0740 MD ALISSA Steele
== END 2019-12-04 11:00 | disposition home or self-care (01) ==
LOC: ER 07:29
PROVIDERS: Emergency Medicine
DX: J44.9 Chronic obstructive pulmonary disease, unspecified (principal); T50.995A Adverse effect of other drugs, medicaments and biological substances, initial encounter; I25.10 Atherosclerotic heart disease of native coronary artery without angina pectoris; K21.9 Gastro-esophageal reflux disease without esophagitis; F17.210 Nicotine dependence, cigarettes, uncomplicated; Z79.899 Other long term (current) drug therapy; Y92.89 Other specified places as the place of occurrence of the external cause

== ENCOUNTER → 2020-04-07 | Outpatient (CLI) | payer OTHER ==
[~2020-04-07] MED LIST changes: +ANORO ELLIPTA1 EACH INH; +ASA81BEC PO; +TOPROL XL25 MG PO; +TRAMADOL 50 MG50 MG PO
== END ==
LOC: SJCVCIMAG 07:47
PROVIDERS: ATTEND Internal Medicine Cardiovascular Disease
DX: I34.0 Nonrheumatic mitral (valve) insufficiency (principal); R06.09 Other forms of dyspnea; R07.89 Other chest pain; I25.10 Atherosclerotic heart disease of native coronary artery without angina pectoris; R42 Dizziness and giddiness; J44.9 Chronic obstructive pulmonary disease, unspecified; E78.5 Hyperlipidemia, unspecified; I10 Essential (primary) hypertension; Z87.891 Personal history of nicotine dependence; Z79.82 Long term (current) use of aspirin; Z79.899 Other long term (current) drug therapy

== ENCOUNTER 2020-04-19 19:41 | Inpatient (IN) | payer OTHER ==
[~2020-04-19] VITALS: Ht 185.4 cm; Wt 85.7 kg
[2020-04-19 19:53] VITALS: BP 105/68
[2020-04-19 20:17] LABS: ABSOLUTE NEUTROPHILS 4.9 thou/uL (1.4-8.2); BASOPHILS 0.6 % (0.0-2.0); EOSINOPHILS 2.2 % (0.0-3.0); HEMATOCRIT 45.2 % (42.0-52.0); HEMOGLOBIN 15.4 gm/dL (14.0-18.0); MCH 31.6 pg (26.0-34.0); MCV 92.8 fL (80.0-100.0); MONOCYTES 9.7 % (1.0-8.0); PLATELET COUNT 208 thou/uL (150-400); POLYS 51.5 % (36.0-66.0); RBC 4.87 mil/uL (4.50-6.00); RDW 13.6 % (10.5-14.5); WBC 9.4 thou/uL (4.0-11.0)
[2020-04-19 20:25] LABS: CALCIUM 9.3 mg/dL (8.5-10.1); CREATININE 1.1 mg/dL (0.7-1.3); POTASSIUM 3.7 mmol/L (3.5-5.1)
[2020-04-19 20:36] LABS: APTT 30.8 Seconds (24.5-32.8); PROTIME 9.6 Seconds (9.3-11.4)
[2020-04-19 22:17] VITALS: BP 133/94
[2020-04-19 22:40] VITALS: BP 133/94
[2020-04-19 23:00] VITALS: BP 139/79
[2020-04-20] VITALS (8 sets, daily range): BP systolic 117–145; BP diastolic 58–92
--- NOTE | 2020-04-20 03:21 | NUR ---
patients cares was assumed after a transfer from ER. PATIENT WAS ASSESSED AND MEDS WERE PASSED. PATIENT WAS AT THE HOSPITAL IN THE MORNING FOR A CATH WITH DR. HEAD. HE HAD A STENT PLACED IN HIS RIGHT GROIN DUE TO BLOCKAGE. PATIENT HAD TROUBLE WITH BLEEDING AT THE BLEACH MIXER. ONCE UNDER CONTROL PATIENT WAS DISCHARGED HOME WITH HIS . PATIENT STATED AT 730 AFTER DINNER HE STARTED BLEEDING AGAIN. HIS BROUGHT HIM BACK TO THE HOSPITAL.ER STOPPED THE BLEEDING WITH TRANEXNIC ACID. PATIENT WAS ADMITTED TO THE FLOOR. AT 0215 THE PATIENT CALLED OUT THAT HE WAS BLEEDING AGAIN. THE CHARGE NURSE WAS THE FIRST INTO THE ROOM AND APPLIED PRESSURE FOR 20 MINUTES. PATIENT WAS CLEANED UP AND PATIENT WAS INSTRUCTED TO LAY FLAT B2PCFMX. IF PATIENT HAS TROUBLE VOIDING A SCHMITZ MAY BE PLACED PER MS. HERRERA NPRN.
[2020-04-20 05:46] LABS: HEMATOCRIT 41.3 % (42.0-52.0); HEMOGLOBIN 13.8 gm/dL (14.0-18.0); MCH 31.2 pg (26.0-34.0); MCHC 33.4 g/dL (28.0-37.0); MCV 93.4 fL (80.0-100.0); RBC 4.43 mil/uL (4.50-6.00); RDW 13.2 % (10.5-14.5); WBC 7.3 thou/uL (4.0-11.0)
[2020-04-20 06:04] LABS: CALCIUM 8.9 mg/dL (8.5-10.1); CREATININE 0.9 mg/dL (0.7-1.3)
--- NOTE | 2020-04-20 13:55 | NUR ---
Chart reviewed and case discussed with the care team. Pt awaiting ultra sound this afternoon. Dc pending US results and no futher bleeding from his groin site. Pt's is at bedside and has met with the RN and PT REP to determine pt's plan of care. Pt's is concerned that she can not drive after dark and wants to know if he is definitly being dc'd today. DC is pending additional testing. CM available to coordinate transport home for the pt if needed and the PT REP advised pt/spouse of this during their discussion. The pt is normally indep with gait/adl's with a cane. He has insurance in place for f/u care and Dr. Hines is his pcp. Will remain available to help with dc transport arrangement if needed. No other cm interventions indicated at this time.
--- NOTE | 2020-04-20 15:49 | NUR ---
RECEIVED PT'S CARE AROUND 0735; PT. ON BED; ALERT; PER REPORT ON BED REST; CARDIAC CATH NURSES IN ROOM DURING SHIFT CHANGE; R. GROIN INCISION C/D/I; NO BLEEDING OR HEMATOMA NOTICED; EDUCATED ABOUT BEING ON BED REST; ST. UNDERSTANDING; GONE FOR US AROUND 0740; PER [place] NO FINDING OF PSEUDOANEURISM; JOSSELYN CABINET MOUNTER NOTIFIED; ORDERS ON PLACED; AM MEDICATION GIVEN; EDUCATED ABOUT FALL PREVENTIONS; NEEDS TO BE REMAINED ABOUT IT FROM TIME TO TIME; UPDATES GIVEN THROUGH THE DAY; EDUCATED ABOUT CALLING IF BLEEDING START; EDUCATED ABOUT HOLDING PRESSURE WHEN COUGHING; [facility]; PER ORDER ABLE TO AMBULATE; PER JOSSELYN APPRAISER LAND CABINET MOUNTER FROM APPRAISER LAND STANDING POINT PT. MIGHT BE D/C THIS AFTERNOON; PT & UPDATE ABOUT IT; ST. UNDERSTANDING; DR. SHOEMAKER NOTIFIED; ASSESSMENT CHARGED; FOLLOWING POC; MONITORING;
== END 2020-04-20 17:08 | disposition home or self-care (01) | DRG 921 ==
LOC: ER 19:41 → 2N 21:27 → EROBS 21:27 → 2N 22:46
PROVIDERS: Emergency Medicine; Nurse Practitioner Family; ADMIT Hospitalist; ATTEND Hospitalist
DX: I97.618 Postprocedural hemorrhage of a circulatory system organ or structure following other circulatory system procedure (principal); M19.90 Unspecified osteoarthritis, unspecified site; J44.9 Chronic obstructive pulmonary disease, unspecified; K21.9 Gastro-esophageal reflux disease without esophagitis; F32.9 Major depressive disorder, single episode, unspecified; I25.10 Atherosclerotic heart disease of native coronary artery without angina pectoris; F41.9 Anxiety disorder, unspecified; Y83.8 Other surgical procedures as the cause of abnormal reaction of the patient, or of later complication, without mention of misadventure at the time of the procedure; E78.5 Hyperlipidemia, unspecified; E78.00 Pure hypercholesterolemia, unspecified; I73.9 Peripheral vascular disease, unspecified; I25.2 Old myocardial infarction; Z95.5 Presence of coronary angioplasty implant and graft; Z98.1 Arthrodesis status; Z79.899 Other long term (current) drug therapy; Z79.82 Long term (current) use of aspirin; Y92.89 Other specified places as the place of occurrence of the external cause; Z87.891 Personal history of nicotine dependence; Z82.49 Family history of ischemic heart disease and other diseases of the circulatory system
CPT/HCPCS: 10081

== ENCOUNTER → 2020-04-19 | Outpatient (CLI) | payer OTHER ==
[~2020-04-19] VITALS: Ht 185.4 cm; Wt 79.8 kg
[2020-04-19 07:08] VITALS: BP 111/79
[2020-04-19 07:17] LABS: HEMATOCRIT 42.9 % (42.0-52.0); HEMOGLOBIN 14.8 gm/dL (14.0-18.0); MCH 31.8 pg (26.0-34.0); MCHC 34.5 g/dL (28.0-37.0); MCV 92.2 fL (80.0-100.0); RBC 4.65 mil/uL (4.50-6.00); RDW 13.6 % (10.5-14.5); WBC 6.6 thou/uL (4.0-11.0)
[2020-04-19 07:26] LABS: CALCIUM 9.1 mg/dL (8.5-10.1); CREATININE 0.9 mg/dL (0.7-1.3)
--- NOTE | 2020-04-19 08:06 | EKG ---
[facility] [place] [address] [place] [address] ELECTROCARDIOGRAM REPORT Name: CHRISTIE BISWAS [facility] [id number] Admission: 04/19/20 Attend Phys: Ronnie Gray MD, Discharge: Date of : 56 Report #: [id number] THIS REPORT FOR: cc: Clifford Hines MD, David A. MD Lundgren,Zenon Rain MD [facility] THIS REPORT FOR: //name// [facility] Test Date: 2020-04-19 Test Time: 07:01:32 Pat Name: CHRISTIE BISWAS Department: Room: Gender: Bench Assembler Electrical: [facility] : 1960 Requested By: Ronnie Gray Order Number: [id number] MD: Zenon Bynum Measurements Intervals [place] Rate: 60 P: 80 CT: 147 QRS: 94 QRSD: 115 T: 36 QT: 428 QTc: 428 Interpretive Statements Sinus rhythm Nonspecific intraventricular conduction delay Compared to ECG 12/04/2019 07:40:56 No significant change was found Electronically Signed On 04-19-2020 8:06:02 CDT by Zenon Bynum [email or web address] <ELECTRONICALLY SIGNED> By: Zenon Bynum MD, [facility] 04/19/20 0806 0 0 Zenon Bynum MD, [facility] /EPI
--- NOTE | 2020-04-23 10:11 | CATHLAB ---
[facility] [place] [address] [address] INVASIVE PROCEDURE REPORT Name: CHRISTIE BISWAS Room #: REG TONE BarbaraVijiCyrus#: [id number] Admission: 04/19/20 Attend Phys: Ronnie Gray MD, Discharge: Date of : 56 Report #: [id number] THIS REPORT FOR: cc: Clifford Hines MD, David A. MD Mancuso, Gerald M. MD [facility] ~ APPROVED REPORT Study performed: 04/19/2020 07:41:49 Patient Details Patient Status: Out-Patient Room #: The patient is a 59 year-old male Event Personnel Ronnie Gray Tax Accounting Manager, Phillip Mcmahon RN RN, Selvin Corral RN, Laura Mtz RTR, Isidro De La Paz Sherra RTR Monitor, Juan Nicole RTR Monitor Procedures Performed Art Access - R femoral artery* Juan Access - R femoral vein Right and Left Heart Cath w/or w/o Coronarie [id number] [facility] Aortogram Abdominal Peripheral Angio 463776 40286 Initial Mod Sed Same Phys/QHP Gr5y 757585 95843 Mod Sed Same Phys/QHP Ea 561856 Procedure Narrative The Right Groin^ was infiltrated with 1% Lidocaine subcutaneous anesthesia. A Right Heart Catheterization was performed with a 67 Fr. [place] catheter and pressure were recorded. A PINNACLE 6FR Sheath #[id number] sheath was inserted into the RFA^. Coronary angiography was performed using coronary diagnostic catheters. The right coronary system was accessed and visualized with a JR4 catheter. The left coronary system was accessed and visualized with a JL4 catheter. The left ventricle was accessed and visualized with a PIGTAIL catheter. Left ventriculogram was performed in 30 degree projection. An aortogram of the abdominal aorta was performed. Closure device was deployed with a Fr MYNX CONTROL 6F/7F L#[id number]. Hemostasis was obtained with manual pressure following sheath removal without any complications. The patient tolerated the procedure well and there were no complications associated with the procedure. There was no hematoma. Intraoperative Conscious Sedation Sedation start time: 8:35 Case end Time: [facility] [address] [place] [address] INVASIVE PROCEDURE REPORT Name: CHRISTIE BISWAS Room #: REG [facility]#: [id number] Admission: 04/19/20 Attend Phys: Ronnie Gray, Discharge: Date of : 56 Report #: [id number] 9:00 Fentanyl 100 mcg Versed 2 mg FENTANYL, VERSED, AND THE RADIATION ARE A COMBINATION INCLUDING BOTH THE HEARTH CATH AND THE RUN-OFF PROCEDURES. Fluoro Time: 10.17 minutes Dose: DAP 65763.30 cGycm2 1283 mGy Contrast Type and Amount: Omnipaque 85 ml Hemodynamics The right atrial mean pressure is 12 mmHg. The right ventricular pressure is 42/2 mmHg. The pulmonary artery pressure is 42/7 mmHg with a mean of 22 mmHg. The mean pulmonary capillary wedge pressure is 14 mmHg. The aortic pressure is 128/68 mmHg with a mean of 80 mmHg. The left ventricular pressure is 133/5 mmHg with a mean of mmHg. The left ventricular end diastolic pressure is 21 mmHg. PCI Technique Lesion 2 Percutaneous Coronary Intervention was performed on the Unspecified. Conclusion 1. Successful right heart catheterization with cardiac output by thermodilution. See above hemodynamics. #2 normal left jugular size with the inferior base mid inferior wall hypokinetic EF 45% #3 abdominal aortogram revealing mildly ectatic aorta small infrarenal distal aortic dilatation with brisk distal flow #4 left main relatively small in caliber mildly disease giving rise to LAD and circumflex #5 LAD is patent with mild diffuse disease becomes a small somewhat atretic vessel distally #6 circumflex OM with mild irregularities no high-grade occlusive disease #7 dominant right coronary with mid distal eccentric lesion of 30 to 40% giving rise to PDA JAGDISH PDA extends along the entire inferior apical wall appears prior mid vessel stent is widely patent. Was prior infarct vessel. Recommendations and plan: Continue aggressive risk factor modification no indication for coronary intervention. <ELECTRONICALLY SIGNED> By: Ronnie Gray MD, FACC 04/23/20 1010 1010 1010 Ronnie Gray MD, FACC /INF
== END | disposition home or self-care (01) ==
LOC: CATH 06:30
PROVIDERS: ATTEND Internal Medicine Cardiovascular Disease
DX: I25.10 Atherosclerotic heart disease of native coronary artery without angina pectoris (principal); I70.213 Atherosclerosis of native arteries of extremities with intermittent claudication, bilateral legs; I70.1 Atherosclerosis of renal artery; I70.0 Atherosclerosis of aorta; I10 Essential (primary) hypertension; F32.9 Major depressive disorder, single episode, unspecified; M19.90 Unspecified osteoarthritis, unspecified site; J44.9 Chronic obstructive pulmonary disease, unspecified; K21.9 Gastro-esophageal reflux disease without esophagitis; F41.9 Anxiety disorder, unspecified; Z79.899 Other long term (current) drug therapy; Z98.890 Other specified postprocedural states

== ENCOUNTER → 2020-10-25 | Outpatient (CLI) | payer OTHER ==
[~2020-10-25] MED LIST changes: +NORCO 10-325 T1 EACH PO
== END ==
LOC: SJCVCIMAG 10:44
PROVIDERS: ATTEND Internal Medicine Cardiovascular Disease
DX: I73.9 Peripheral vascular disease, unspecified (principal); Z95.828 Presence of other vascular implants and grafts

== ENCOUNTER → 2020-10-28 | Outpatient (CLI) | payer OTHER ==
[~2020-10-28] VITALS: Ht 185.4 cm; Wt 86.2 kg
[2020-10-28 08:40] LABS: HEMOGLOBIN 14.4 gm/dL (14.0-18.0); MCH 30.4 pg (26.0-34.0); MCHC 32.8 g/dL (28.0-37.0); MCV 92.7 fL (80.0-100.0); RBC 4.74 mil/uL (4.50-6.00); WBC 8.1 thou/uL (4.0-11.0)
[2020-10-28 08:45] LABS: CALCIUM 9.7 mg/dL (8.5-10.1); CREATININE 0.9 mg/dL (0.7-1.3); POTASSIUM 3.9 mmol/L (3.5-5.1)
[2020-10-28 08:47] VITALS: BP 135/71
--- NOTE | 2020-10-28 17:35 | CATHLAB ---
[facility] [place] [address] INVASIVE PROCEDURE REPORT Name: CHRISTIE BISWAS Room #: REG TONE LinCyrusVijiCyrus#: [id number] Admission: 10/28/20 Attend Phys: Ronnie Gray MD, Discharge: Date of : 56 Report #: [id number] THIS REPORT FOR: cc: Clifford Hines MD, David A. MD Mancuso, Gerald M. MD [facility] ~ APPROVED REPORT Study performed: 10/28/2020 09:05:38 Patient Details Patient Status: Out-Patient Room #: The patient is a 60 year-old male Event Personnel Ronnie Gray System Operation Superintendent, Codey Felix RTR Monitor, Sarah Beth Carrington RTR Scrub, Nirmala Crenshaw RN RN, Mary Huerta RN loan review analyst Performed Art Access - R femoral artery* Left Heart Cath w/or w/o Coronaries [id number] [facility] [address] Initial Mod Sed Same Phys/QHP Gr 073611 73540 Mod Sed Same Phys/QHP Ea 882676 Hemostasis w/ Mynx Indication Chest pain Procedure Narrative The Right Groin^ was infiltrated with subcutaneous anesthesia. A Right Heart Catheterization was performed with a [address] [place] catheter and pressure were recorded. Cardiac outputs were obtained by the Thermal Dilution method. A [place] 6FR Sheath #[id number] sheath was inserted into the RFA^. Coronary angiography was performed using coronary diagnostic catheters. The right coronary system was accessed and visualized with a JR4 catheter. The left coronary system was accessed and visualized with a JL4 catheter. The left ventricle was accessed and visualized with a PIGTAIL catheter. Left ventriculogram was performed in 30 degree projection. Closure device was deployed with a 6 Fr MYNXGRIP 6/7F #[id number]. Hemostasis was obtained with manual pressure following sheath removal without any complications. The patient tolerated the procedure well and there were no complications associated with the procedure. There was no hematoma. [facility] [address] [place] [address] INVASIVE PROCEDURE REPORT Name: CHRISTIE BISWAS Room #: [facility] [id number] Admission: 10/28/20 Attend Phys: Ronnie Gray, Discharge: Date of : 56 Report #: [id number] Intraoperative Conscious Sedation Sedation start time: 959 Case end Time: 1049 Fentanyl 100 mcg Versed 3 mg Fluoro Time: 4.20 minutes Dose: DAP 5433.90 cGycm2 599 mGy Contrast Type and Amount: Omnipaque 95 ml Hemodynamics The right atrial mean pressure is 6 mmHg. The right ventricular pressure is 52/43 mmHg. The pulmonary artery pressure is 36/12 mmHg with a mean of 21 mmHg. The mean pulmonary capillary wedge pressure is 10 mmHg. The aortic pressure is 103/44 mmHg with a mean of 68 mmHg. The left ventricular pressure is 109/7 mmHg with a mean of mmHg. The left ventricular end diastolic pressure is 13 mmHg. The cardiac output using thermo method is 3.77 L/min. The cardiac index using thermo method is 1.79 L/min/m2. Conclusion #1. Successful right heart catheterization with cardiac output by thermodilution. See above hemodynamics. #2 normal left ventricular size with the mid and inferior basilar hypokinesis EF is 40 to 45%. #3 left main mild disease giving rise to LAD and circumflex. #4 LAD is diffusely diseased and relatively small in caliber with proximal calcification no occlusive disease type I LAD is short of the apex. #5 circumflex OM nondominant with mild irregularity #6 dominant right coronary prior infarct vessel proximal mid stent widely patent distal to that is 40 to 50% diffuse disease but no occlusive disease PDA well preserved. Recommendations and plan: Continue aggressive risk factor modification. No significant pulmonary hypertension exist no evidence of volume overload. No indication for coronary intervention. <ELECTRONICALLY SIGNED> By: Ronnie Gray MD, FACC 10/28/20 1734 1734 173 Ronnie Gray MD, FACC /INF
== END | disposition home or self-care (01) ==
LOC: CATH 07:44
PROVIDERS: ATTEND Internal Medicine Cardiovascular Disease
DX: R07.89 Other chest pain (principal); I25.10 Atherosclerotic heart disease of native coronary artery without angina pectoris; I10 Essential (primary) hypertension; E78.5 Hyperlipidemia, unspecified; Z79.899 Other long term (current) drug therapy; I73.9 Peripheral vascular disease, unspecified; J44.9 Chronic obstructive pulmonary disease, unspecified; Z95.5 Presence of coronary angioplasty implant and graft